=== PATIENT | female | born 1940 | race Hispanic/Latino ===

== ENCOUNTER → 2018-05-04 | Outpatient (CLI) | payer OTHER | END | disposition home or self-care (01) | LOC: RAH 12:28 | PROVIDERS: ATTEND Internal Medicine | DX: I65.22 Occlusion and stenosis of left carotid artery (principal) | CPT/HCPCS: 93880 ==

== ENCOUNTER → 2018-06-11 | Outpatient (CLI) | payer OTHER | END | disposition home or self-care (01) | LOC: SHCH 13:01 | PROVIDERS: ATTEND Internal Medicine Cardiovascular Disease | DX: I87.2 Venous insufficiency (chronic) (peripheral) (principal); I73.9 Peripheral vascular disease, unspecified | CPT/HCPCS: 93925; 93970 ==

== ENCOUNTER → 2018-06-18 | Outpatient (CLI) | payer OTHER ==
[~2018-06-18] VITALS: Ht 160 cm; Wt 66.7 kg
[~2018-06-18] MED LIST: REGADENOSON 0.4 MG/5 ML PF SYG IVP SCH
== END | disposition home or self-care (01) ==
LOC: SHCH 08:30
PROVIDERS: ATTEND Internal Medicine Cardiovascular Disease
DX: R06.09 Other forms of dyspnea (principal); R07.89 Other chest pain
CPT/HCPCS: 78452; 93017; 96374; A9500 ×2; J2785

== ENCOUNTER 2018-07-20 06:24 | Observation (INO) | payer OTHER ==
[2018-07-19 17:06] LABS: BASOPHILS % (AUTO) 0.8 % (0.0-5.0); EOSINOPHILS % (AUTO) 1.8 % (0.0-8.0); HEMATOCRIT 40.2 % (36-48); LYMPHOCYTES % (AUTO) 17.9 % (21.0-51.0); MEAN CORPUSCULAR HEMOGLOBIN 29.5 pg (27.0-33.0); MEAN CORPUSCULAR HGB CONC 33.2 g/dL (32.0-36.0); MEAN CORPUSCULAR VOLUME 88.9 fL (79-99); MONOCYTES % (AUTO) 8.1 % (3.0-13.0); NEUTROPHILS % (AUTO) 71.4 % (40.0-77.0); PLATELET COUNT (AUTO) 285 K/uL (130-400); RED BLOOD CELL COUNT(AUTO) 4.53 MIL/uL (4.00-5.50); RED CELL DISTRIBUTION WIDTH 13.7 % (11.0-15.5); WHITE BLOOD COUNT (AUTO) 9.4 K/uL (4.8-10.8)
[2018-07-19 17:09] VITALS: BP 133/63
[2018-07-19 17:49] LABS: POTASSIUM 3.4 mmol/L (3.5-5.1)
[2018-07-19 18:25] LABS: INR 0.97 (0.85-1.15); PARTIAL THROMBOPLASTIN TIME 26.4 SEC (26.3-35.5); PROTHROMBIN TIME 10.2 SEC (9.6-11.6)
--- NOTE | 2018-07-19 18:48 | NUR ---
DR. CARSON NOTIFIED OF ABNORMAL POTASSIUM/BUN, NO NEW ORDERS RECEIVED.
[2018-07-20] VITALS (23 sets, daily range): BP systolic 130–164; BP diastolic 57–78
[~2018-07-20] VITALS: Ht 160 cm; Wt 65.2 kg
[~2018-07-20 06:24] MED LIST changes: +ACET-2743 PO; +AEC81 PO; +ATOR20TA65 PO; +CILO100T PO; +ENAL10TA PO; +HYDR25TA PO; -REGADENOSON 0.4 MG/5 ML PF SYG IVP SCH
[2018-07-20] MEDS ORDERED: LACTATED RINGERS 1000ML 1,000 ML IV ONE (08:39)
[2018-07-20] MEDS: CEFAZOLIN SODIUM 1 GM VIAL ONE ×2 (08:48→09:47)
[2018-07-20] MEDS ORDERED: MIDAZOLAM HCL 1 MG/ML 2ML VIAL ONE (09:40)
[2018-07-20] MEDS ORDERED: LIDOCAINE PF 2% 5ML ABBOJECT ONE (09:42)
[2018-07-20] MEDS ORDERED: ROCURONIUM 10MG/1ML SYR 10 MG/ML ML ONE (09:43)
[2018-07-20] MEDS ORDERED: PROPOFOL 10 MG/ML 20ML VIAL IV ONE (09:43)
[2018-07-20] MEDS ORDERED: FENTANYL CITRATE PF 50 MCG/1 ML 5ML AMP IV ONE (10:03)
[2018-07-20] MEDS ORDERED: DEXAMETHASONE SOD PHOSPHATE 10MG/ML 1ML VIAL ONE (11:01)
[2018-07-20] MEDS ORDERED: NEOSTIGMINE 5MG/5ML SYR IV ONE (11:01)
[2018-07-20] MEDS ORDERED: ONDANSETRON HCL 4 MG/2 ML VIAL ONE ×2 (11:01→11:57)
[2018-07-20] MEDS ORDERED: GLYCOPYRROLATE 1 MG/5 ML SYRINGE ONE (11:01)
[2018-07-20] MEDS ORDERED: MEPERIDINE-PF 25 MG/ML SYG ONE ×2 (11:51→11:59)
[2018-07-20] MEDS ORDERED: BISACODYL 10 MG SUPP.RECT RC PRN (13:00)
[2018-07-20] MEDS ORDERED: DOCUSATE SODIUM 100 MG CAP PO PRN (13:00)
[2018-07-20] MEDS ORDERED: ONDANSETRON HCL 4 MG/2 ML VIAL IVP PRN (13:00)
[2018-07-20] MEDS ORDERED: IBUPROFEN 600 MG TABLET PO PRN (13:00)
[2018-07-20] MEDS ORDERED: MEPERIDINE-PF 75 MG/ML SYG IM PRN (13:00)
[2018-07-20] MEDS ORDERED: PROMETHAZINE HCL 25 MG/ML 1ML AMPULE IM PRN ×2 (13:00)
[2018-07-20] MEDS ORDERED: SIMETHICONE 80 MG TAB.CHEW PO PRN (13:00)
[2018-07-20] MEDS: DEXTROSE 5 %-0.45 % NACL 1,000 ML IV PRN ×2 (13:41→22:34)
[2018-07-20] MEDS: ACETAMINOPHEN-CODEINE 300/30MG TAB PO PRN (18:00)
[2018-07-21] MEDS: ACETAMINOPHEN-CODEINE 300/30MG TAB PO PRN (03:44)
[2018-07-21 04:15] VITALS: BP 113/60
[2018-07-21 05:54] LABS: HEMATOCRIT 32.1 % (36-48); MEAN CORPUSCULAR HEMOGLOBIN 29.3 pg (27.0-33.0); MEAN CORPUSCULAR HGB CONC 33.1 g/dL (32.0-36.0); MEAN CORPUSCULAR VOLUME 88.5 fL (79-99); PLATELET COUNT (AUTO) 240 K/uL (130-400); RED BLOOD CELL COUNT(AUTO) 3.63 MIL/uL (4.00-5.50); RED CELL DISTRIBUTION WIDTH 13.3 % (11.0-15.5); WHITE BLOOD COUNT (AUTO) 17.4 K/uL (4.8-10.8)
[2018-07-21] MEDS: DEXTROSE 5 %-0.45 % NACL 1,000 ML IV PRN (06:37)
[2018-07-21] MEDS ORDERED: BISACODYL 10 MG SUPP.RECT RC PRN (07:45)
[2018-07-21] MEDS ORDERED: HYDROCODONE/ACETAMINOPHEN 5/325 MG TAB PO PRN (07:45)
[2018-07-21] MEDS ORDERED: ACETAMINOPHEN-CODEINE 300/30MG TAB PO PRN (07:45)
[2018-07-21 07:53] VITALS: BP 140/66
[2018-07-21] MEDS: DOCUSATE SODIUM 100 MG CAP PO PRN ×2 (09:25→20:57)
[2018-07-21] MEDS: FERROUS SULFATE 325 MG TABLET.DR PO SCH (09:25)
[2018-07-21] MEDS: IBUPROFEN 800 MG TAB PO PRN ×2 (09:26→16:53)
[2018-07-21 12:47] VITALS: BP 126/72
[2018-07-21] MEDS: SIMETHICONE 80 MG TAB.CHEW PO PRN ×3 (16:52→20:58)
[2018-07-21 16:55] VITALS: BP 111/58
[2018-07-21 19:49] VITALS: BP 111/68
--- NOTE | 2018-07-21 20:00 | NUR ---
PT. AMBULATED WITH ASSIST OF FAMILY MEMBER IN ROOM AFTER SITZ BATH WAS DONE; THEN SAT IN CHAIR FOR A FEW MINUTES BEFORE GOING BACK TO BED.
--- NOTE | 2018-07-21 21:15 | NUR ---
SUPRA PUBIC CATHETER CONNECTED TO BEDSIDE DRAINAGE, INST. ON CONNECTION OF CATHETER GIVEN TO PT AND FAMILY MEMBER, BOTH VERBALIZE UNDERSTANDING.
[2018-07-22 00:07] VITALS: BP 97/51
[2018-07-22 04:05] VITALS: BP 137/63
[2018-07-22] MEDS: ACETAMINOPHEN-CODEINE 300/30MG TAB PO PRN (04:16)
[2018-07-22 07:28] VITALS: BP 110/54
[2018-07-22] MEDS: FERROUS SULFATE 325 MG TABLET.DR PO SCH (07:54)
[2018-07-22] MEDS: SIMETHICONE 80 MG TAB.CHEW PO PRN (09:27)
[2018-07-22] MEDS: DOCUSATE SODIUM 100 MG CAP PO PRN (09:28)
[2018-07-22] MEDS: IBUPROFEN 800 MG TAB PO PRN (09:30)
--- NOTE | 2018-07-22 10:09 | NUR ---
ACTIVITY PT AMBULATING HALLWAY, ACCOMPANIED BY FAMILY MEMBER, STEADY GAIT, TOLERATING WELL
--- NOTE | 2018-07-22 10:30 | NUR ---
DRESSING DEMONSTRATED WITH TEACH BACK AND RETURN DEMONSTRATION DONE ON SUPRAPUBIC CATHETER DRESSING; PT AND [id number] VERBALIZED UNDERSTANDING AND D.I.L. STATES FEEL COMFORTABLE TO DO ON OWN
[2018-07-22 11:50] VITALS: BP 117/57
--- NOTE | 2018-07-22 15:40 | NUR ---
DISCHARGE PT STABLE, NO PAIN, NO COMPLAINTS; PT LEFT UNIT, VIA WHEELCHAIR, ACCOMPANIED BY MARTIN BERUMEN AND FAMILY MEMBER CARRYING ALL PERSONAL BELONGINGS, INSTRUCTIONS, YATES BAG, SITZ BATH, AND PRESCRIPTION; PT LEFT FACILITY IN PERSONAL VEHICLE
== END 2018-07-22 15:40 | disposition home or self-care (01) ==
LOC: DAH 06:24 → WSH 06:25
PROVIDERS: ADMIT Obstetrics & Gynecology; ATTEND Obstetrics & Gynecology
DX: N81.3 Complete uterovaginal prolapse (principal); K46.9 Unspecified abdominal hernia without obstruction or gangrene; Z79.899 Other long term (current) drug therapy; Z79.01 Long term (current) use of anticoagulants
CPT/HCPCS: 36415 ×3; 57260; 58275; 80048; 82947; 85025; 85027; 85610; 85730; 86850; 86900; 86901; 88305; 96372; A4218; A4344; A4351; A4510; A4600; A4606; A5113; C1771; G0378 ×57; J0690; J1100; J2001; J2175 ×3; J2250; J2405 ×2; J2550; J2704; J2710; J3010; J3490; J7120 ×2